=== PATIENT | female | born 1975 | race Caucasian/White ===

== ENCOUNTER 2018-01-31 23:20 | Emergency (ER) | payer OTHER ==
[~2018-01-31] VITALS: Ht 160 cm; Wt 99.8 kg
[~2018-01-31 23:20] MED LIST: CLARINEX5 MG/TAB PO; LEVSIN/SL0.125 MG SL; LOSARTAN-HCTZ1 EACH; NASONEX17 GM NS; PREVACID30 MG PO; PREVENT SOFTGEL1 CAP PO; PROTONIX40 MG; PROTONIX40 MG PO; VERAPAMIL HCL40 MG; ZITHROMAX500 MG PO
[2018-02-01] MEDS ORDERED: HYZAAR 100-12.1 EACH PO (06:14)
== END 2018-02-01 06:48 | disposition home or self-care (01) ==
LOC: ER 23:20 → CPU-OBS 23:27 → ER 23:27
DX: R07.89 Other chest pain (principal); I10 Essential (primary) hypertension
CPT/HCPCS: G0378; G0379; 93005

== ENCOUNTER 2018-04-02 15:44 | Emergency (ER) | payer OTHER ==
[~2018-04-02] VITALS: Ht 160 cm; Wt 104.3 kg
== END 2018-04-02 19:25 | disposition home or self-care (01) ==
LOC: ER 15:44
DX: M54.5 Low back pain (principal)

== ENCOUNTER 2018-07-02 13:13 | Emergency (ER) | payer OTHER ==
[~2018-07-02] VITALS: Ht 160 cm; Wt 98.9 kg
[~2018-07-02 13:13] MED LIST changes: +HYZAAR 100-12.1 EACH PO
== END 2018-07-02 16:17 | disposition home or self-care (01) ==
LOC: ER 13:13
DX: B34.9 Viral infection, unspecified (principal)

== ENCOUNTER 2018-12-03 07:28 | Outpatient (CLI) | payer OTHER | END 2018-12-03 07:58 | disposition home or self-care (01) | LOC: LAB 07:28 | DX: E07.89 Other specified disorders of thyroid (principal); N39.0 Urinary tract infection, site not specified; E78.00 Pure hypercholesterolemia, unspecified; E78.1 Pure hyperglyceridemia; E53.8 Deficiency of other specified B group vitamins; D64.89 Other specified anemias; R94.6 Abnormal results of thyroid function studies ==

== ENCOUNTER 2018-12-03 10:43 | Outpatient (CLI) | payer OTHER | END 2018-12-03 17:00 | disposition home or self-care (01) | LOC: MAMO-SONO 10:43 | DX: N60.11 Diffuse cystic mastopathy of right breast (principal); N60.12 Diffuse cystic mastopathy of left breast; Z12.31 Encounter for screening mammogram for malignant neoplasm of breast ==

== ENCOUNTER 2019-01-06 10:48 | Outpatient (CLI) | payer OTHER | END 2019-01-06 14:31 | disposition home or self-care (01) | LOC: MRI 10:48 | DX: S83.203A Other tear of unspecified meniscus, current injury, right knee, initial encounter (principal) | CPT/HCPCS: 73721 ==

== ENCOUNTER 2019-05-10 10:19 | Outpatient (CLI) | payer OTHER | END 2019-05-10 10:28 | disposition home or self-care (01) | LOC: LAB 10:19 | DX: E55.9 Vitamin D deficiency, unspecified (principal); E03.8 Other specified hypothyroidism ==

== ENCOUNTER 2019-10-06 14:51 | Outpatient (CLI) | payer OTHER | END 2019-10-06 14:58 | disposition home or self-care (01) | LOC: LAB 14:51 | DX: B34.8 Other viral infections of unspecified site (principal); J11.1 Influenza due to unidentified influenza virus with other respiratory manifestations ==

== ENCOUNTER → 2020-04-19 07:00 | Outpatient (CLI) | payer OTHER | END | disposition home or self-care (01) | LOC: PPH VACUNA 07:00 | DX: Z23 Encounter for immunization (principal) ==